=== PATIENT | female | born 1995 | race Caucasian/White ===

== ENCOUNTER 2018-05-03 21:38 | Emergency (ER) | payer OTHER, SELFPAY ==
--- NOTE | 2018-05-03 21:47 | DI.US.S_ITS ---
PROCEDURE: US OB <= 14 WEEKS FETUS INDICATIONS: BLEEDING, CRAMPING OUTSIDE/PRIOR DATING DATA: Last menstrual period (LMP): 03/17/2018. LMP-based estimated date of delivery (SHABBIR): 12/22/2018. First dating scan (date and location): This exam. Estimated date of delivery (SHABBIR) from first dating scan: n.a. TECHNIQUE: Real-time scanning was performed of the fetus and maternal pelvic organs, with image documentation. Endovaginal scanning was also performed to better visualize the fetus and maternal ovaries. COMPARISON: None. FINDINGS: Embryo: There is an IUP with an irregular shaped gestational sac. Based on the mean gestational sac dimension, the estimated gestational age is 6 weeks 0 day. No pole or yolk sac are visualized. Measurement variability in dating: +/- 4 weeks by LMP, +/- 7 days by mean sac diameter (use before 6 weeks gestation if crown-rump length not able to be measured), +/- 5 days by crown-rump length (up to 8 weeks 6 days gestation), +/- 7 days by crown-rump length (up to 13 weeks 6 days gestation). Maternal organs: Ovaries are grossly normal. Limited images through the kidneys demonstrate no hydronephrosis. IMPRESSION: There is an IUP with an irregular gestational sac and no pole or yolk sac. The estimated gestational age based on the second measures 6 weeks 0 day. The ultrasound finding is concerning for early failure but clinical correlation is needed. Followup imaging as clinically indicated. No significant discrepancy with the spot welder line radiology preliminary report. Dictated by: Ora Bueno M.D. on 05/04/2018 at 8:57 Approved by: Ora Bueno M.D. on 05/04/2018 at 9:02
[2018-05-03 22:00] VITALS: BP 150/100; PULSE 103; RESP 20; TEMP 36.3; O2SAT 98; BMI 33.0
--- NOTE | 2018-05-03 22:22 | PC.NURSE ---
Pt states 6 weeks , vaginal bleeding since yesterday worse today with new onset lower abdominal cramping for past 2 hours and worse bleeding filling a pad every 1.5 to 2 hours. States was seen at [facility] yesterday for vaginal bleeding and had an US that showed baby was good. 1 Para 0. Pt denies n/v or fevers. Last BM normal today.
[2018-05-03 22:24] LABS: Hemoglobin 14.1 g/dL (12.0-16.0)
[2018-05-03 22:51] LABS: HCG Quantitative /Beta subunit 1756.8 mIU/mL
[2018-05-03 23:05] VITALS: BP 129/89; PULSE 93; RESP 19; O2SAT 98
--- NOTE | 2018-05-03 23:07 | ED.PREGNANCY ---
HPI - General Chief complaint: OB/Uterine Contractions Stated complaint: 6wks preg, cramps Time Seen by Provider: 05/03/18 21:47 Source: patient and family Mode of arrival: ambulatory Limitations: no limitations History of Present Illness HPI Narrative: 22-year-old female nonsmoker, otherwise healthy presents with worsening pelvic cramping and vaginal bleeding for the past 1 hr. She is a at about 6 weeks and had some spotting yesterday and presented to an outside facility. There she had a very thorough evaluation including ultrasound that shows a possible gestational sac within the uterus, no obvious ectopic and beta quantitative HCG of 3663. She had a relatively normal morning and then a few hours ago developed more intense pelvic cramping and heavier bleeding with the passage of 1 clots. She is not dizzy nor weak or lightheaded. She has had no fever or chills. She denies any trauma. She has a scheduled appointment with her Ob on based on Tuesday MD Complaint: vaginal bleeding Onset (ago): hour(s) Pain Consistency: intermittent Location: pelvis Severity: moderate Quality: Aching and Cramping Relieving factors: none Exacerbating factors: none Vaginal bleeding: heavy Patient : Yes Number of Weeks : 6 Review of Systems Constitutional Denies chills, Denies fever(s), Denies lethargy and Denies weakness Eyes Denies change in vision, Denies eye discharge, Denies irritation and Denies loss of vision ENT Ears, Nose, Mouth, and Throat: Denies change in voice, Denies neck pain and Denies sore throat Cardiovascular Denies chest pain, Denies irregular heart rhythm, Denies lightheadedness, Denies palpitations, Denies dyspnea, Denies dyspnea on exertion and Denies orthopnea Respiratory Denies cough, Denies dyspnea, Denies dyspnea on exertion and Denies wheezing Gastrointestinal Gastrointestinal: Denies abdominal pain, Denies change in bowel habits, Denies diarrhea, Denies nausea and Denies vomiting Genitourinary Reports abnormal vaginal bleeding, Denies hematuria, Reports pelvic pain, Denies flank pain, Denies urinary incontinence and Denies urinary urgency Musculoskeletal Denies neck pain Integumentary/Breasts Denies pruritus, Denies erythema, Denies rash and Denies wounds Neurologic Denies confusion, Denies loss of vision and Denies weakness Psychiatric Denies anxiety, Denies confusion, Denies depression, Denies homicidal ideation and Denies suicidal ideation Endocrine Denies palpitations Hematologic/Lymphatic Denies easy bruising Allergic/Immunologic Denies wheezing PMFSH - Past Medical History Medical history: Reports no medical history Surgical history: Reports no surgical history BRAIDER SETTER history: Reports No BRAIDER SETTER History Patient : Yes Psychiatric history: Reports no psych history Family history: Reports no significant family history Exam Narrative Exam Narrative: GENERAL: This is a well-nourished, well-developed patient, in mild distress. HEAD: Atraumatic. Normocephalic. No temporal or scalp tenderness. EYES: Pupils equal round and reactive. Extraocular motions intact. No scleral icterus. No injection or drainage. ENT: Nose without bleeding, purulent drainage or septal hematoma. Throat without erythema, tonsillar hypertrophy or exudate. Uvula midline. Airway patent. NECK: Trachea midline. No JVD or lymphadenopathy. Supple, nontender, no meningeal signs. CARDIOVASCULAR: Regular rate and rhythm without murmurs, gallops, or rubs. RESPIRATORY: Clear to auscultation. Breath sounds equal bilaterally. No wheezes, rales, or rhonchi. GASTROINTESTINAL: Abdomen soft, non-tender, nondistended. No hepato-splenomegaly, or palpable masses. No guarding. PELVIC: dark blood with minimal clots via closed cervical os. 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 No joint tenderness, effusion, or edema noted. BACK: Nontender without deformity or crepitance. No flank tenderness. NEURO: AOx3. SKIN: No rash or erythema. Initial Vital Signs Initial Vital Signs: Vital Signs Temperature 97.3 F L 05/03/18 22:00 Pulse Rate 103 H 05/03/18 22:00 Respiratory Rate 20 05/03/18 22:00 Blood Pressure 150/100 H 05/03/18 22:00 Pulse Oximetry 98 05/03/18 22:00 Procedures Number of Weeks : 6 Course Orders Ordered: ED Orders 05/03/18 21:47 US OB <= 14 weeks fetus Stat 05/03/18 22:15 ABO RH Type Stat HCG Quantitative Stat Hemoglobin and Hematocrit Stat Consultations Consultation #1: Given slightly worsening symptoms, appearance on ultrasound and decreased beta quantitative HCG he was seen this is almost surely a threatened and early miscarriage. Patient has an appointment with her OB on Tuesday and can discuss various options. She and significant other had been given return precautions and verbalized their understanding Vital Signs - 8 hr 05/03/18 22:00 Temperature 97.3 F L Pulse Rate 103 H Respiratory Rate 20 Blood Pressure 150/100 H Pulse Oximetry 98 MDM - OB/Uterine Contractions Medical Records Attestation: I reviewed the patient's medical records. Lab Data Attestation: I reviewed the patient's lab results. Result diagrams: 05/03/18 22:15 Lab Results 05/03/18 05/03/18 05/03/18 Range/Units 22:15 22:15 22:15 Hgb 14.1 (12.0-16.0) g/dL Hct 41.0 (36-46) % HCG, Quant 1756.8 mIU/mL Blood Type O Positive Imaging Data US Pelvis / OB: Radiologist's impression: 1.2 cm gestational sac noted without pole or cardiac activity. This may be a nonviable Discharge Plan Departure Patient Disposition: Home Clinical Impression: Vaginal bleeding affecting early , , spontaneous threatened Discharge Date/Time: 05/03/18 23:10 Instructions: DI for Threatened Activity Restrictions/Additional Instructions: *You have been diagnosed with [ vaginal bleeding in , likely threatened miscarriage ] *What to do: *Follow up with your timber setter provider on Tuesday as planned *Return to ER if you should have any new, worsening or concerning symptoms, such as [increased bleeding, saturating a pad per hour for more than a few hours, dizziness, lightheadedness or other bothersome symptoms ]
--- NOTE | 2018-05-03 23:19 | ED_ITS ---
HPI - General Chief complaint: OB/Uterine Contractions Stated complaint: 6wks preg, cramps Time Seen by Provider: 05/03/18 21:47 Source: patient and family Mode of arrival: ambulatory Limitations: no limitations History of Present Illness HPI Narrative: 22-year-old female nonsmoker, otherwise healthy presents with worsening pelvic cramping and vaginal bleeding for the past 1 hr. She is a at about 6 weeks and had some spotting yesterday and presented to an outside facility. There she had a very thorough evaluation including ultrasound that shows a possible gestational sac within the uterus, no obvious ectopic and beta quantitative HCG of 3663. She had a relatively normal morning and then a few hours ago developed more intense pelvic cramping and heavier bleeding with the passage of 1 clots. She is not dizzy nor weak or lightheaded. She has had no fever or chills. She denies any trauma. She has a scheduled appointment with her Ob on based on Tuesday MD Complaint: vaginal bleeding Onset (ago): hour(s) Pain Consistency: intermittent Location: pelvis Severity: moderate Quality: Aching and Cramping Relieving factors: none Exacerbating factors: none Vaginal bleeding: heavy Patient : Yes Number of Weeks : 6 Review of Systems Constitutional Denies chills, Denies fever(s), Denies lethargy and Denies weakness Eyes Denies change in vision, Denies eye discharge, Denies irritation and Denies loss of vision ENT Ears, Nose, Mouth, and Throat: Denies change in voice, Denies neck pain and Denies sore throat Cardiovascular Denies chest pain, Denies irregular heart rhythm, Denies lightheadedness, Denies palpitations, Denies dyspnea, Denies dyspnea on exertion and Denies orthopnea Respiratory Denies cough, Denies dyspnea, Denies dyspnea on exertion and Denies wheezing Gastrointestinal Gastrointestinal: Denies abdominal pain, Denies change in bowel habits, Denies diarrhea, Denies nausea and Denies vomiting Genitourinary Reports abnormal vaginal bleeding, Denies hematuria, Reports pelvic pain, Denies flank pain, Denies urinary incontinence and Denies urinary urgency Musculoskeletal Denies neck pain Integumentary/Breasts Denies pruritus, Denies erythema, Denies rash and Denies wounds Neurologic Denies confusion, Denies loss of vision and Denies weakness Psychiatric Denies anxiety, Denies confusion, Denies depression, Denies homicidal ideation and Denies suicidal ideation Endocrine Denies palpitations Hematologic/Lymphatic Denies easy bruising Allergic/Immunologic Denies wheezing PMFSH - Past Medical History Medical history: Reports no medical history Surgical history: Reports no surgical history WILDERNESS GUIDE history: Reports No WILDERNESS GUIDE History Patient : Yes Psychiatric history: Reports no psych history Family history: Reports no significant family history Exam Narrative Exam Narrative: GENERAL: This is a well-nourished, well-developed patient, in mild distress. HEAD: Atraumatic. Normocephalic. No temporal or scalp tenderness. EYES: Pupils equal round and reactive. Extraocular motions intact. No scleral icterus. No injection or drainage. ENT: Nose without bleeding, purulent drainage or septal hematoma. Throat without erythema, tonsillar hypertrophy or exudate. Uvula midline. Airway patent. NECK: Trachea midline. No JVD or lymphadenopathy. Supple, nontender, no meningeal signs. CARDIOVASCULAR: Regular rate and rhythm without murmurs, gallops, or rubs. RESPIRATORY: Clear to auscultation. Breath sounds equal bilaterally. No wheezes, rales, or rhonchi. GASTROINTESTINAL: Abdomen soft, non-tender, nondistended. No hepato- splenomegaly, or palpable masses. No guarding. PELVIC: dark blood with minimal clots via closed cervical os. 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 No joint tenderness, effusion, or edema noted. BACK: Nontender without deformity or crepitance. No flank tenderness. NEURO: AOx3. SKIN: No rash or erythema. Initial Vital Signs Initial Vital Signs: Vital Signs Temperature 97.3 F L 05/03/18 22:00 Pulse Rate 103 H 05/03/18 22:00 Respiratory Rate 20 05/03/18 22:00 Blood Pressure 150/100 H 05/03/18 22:00 Pulse Oximetry 98 05/03/18 22:00 Procedures Number of Weeks : 6 Course Orders Ordered: ED Orders 05/03/18 21:47 US OB <= 14 weeks fetus Stat 05/03/18 22:15 ABO RH Type Stat HCG Quantitative Stat Hemoglobin and Hematocrit Stat Consultations Consultation #1: Given slightly worsening symptoms, appearance on ultrasound and decreased beta quantitative HCG he was seen this is almost surely a threatened and early miscarriage. Patient has an appointment with her OB on Tuesday and can discuss various options. She and significant other had been given return precautions and verbalized their understanding Vital Signs - 8 hr 05/03/18 22:00 Temperature 97.3 F L Pulse Rate 103 H Respiratory Rate 20 Blood Pressure 150/100 H Pulse Oximetry 98 MDM - OB/Uterine Contractions Medical Records Attestation: I reviewed the patient's medical records. Lab Data Attestation: I reviewed the patient's lab results. Result diagrams: 05/03/18 22:15 Lab Results 05/03/18 05/03/18 05/03/18 Range/Units 22:15 22:15 22:15 Hgb 14.1 (12.0-16.0) g/dL Hct 41.0 (36-46) % HCG, Quant 1756.8 mIU/mL Blood Type O Positive Imaging Data US Pelvis / OB: Radiologist's impression: 1.2 cm gestational sac noted without pole or cardiac activity. This may be a nonviable Discharge Plan Departure Patient Disposition: Home Clinical Impression: Vaginal bleeding affecting early , , spontaneous threatened Discharge Date/Time: 05/03/18 23:10 Instructions: DI for Threatened Activity Restrictions/Additional Instructions: *You have been diagnosed with [ vaginal bleeding in , likely threatened miscarriage ] *What to do: *Follow up with your cmo & president provider on Tuesday as planned *Return to ER if you should have any new, worsening or concerning symptoms, such as [increased bleeding, saturating a pad per hour for more than a few hours, dizziness, lightheadedness or other bothersome symptoms ]
--- NOTE | 2018-05-04 08:34 | PATH_ITS ---
[facility] Accession Number: [id number] . 01 Material submitted: . POC/VAGINAL . 01 Clinical history: . CONFIRM POC . 02 Diagnosis: Products Of Conception/Vaginal: Portions of blood and fibrin. Negative for products of conception. I/05/08/2018 . 02 Electronically signed: . Iman Mayorga MD, Pathologist NPI- [id number] . 01 Gross description: . Received unfixed, labeled products of conception, are multiple fragments of miller-pink tissue (2.3 x 2.1 x 0.4 cm in aggregate). No tissue is identified. Entirely submitted in cassette A1. ([id number]) /MRV . 02 Pathologist provided ICD-10: Z00.01 . 02 CPT . 425199 Performed at: [facility] [address] [id number] MD Felipe Montano MD Phone: [phone] Performed at: [facility] [address] [place], [place] [id number] MD Sobia Chase MD Phone: [phone]
== END 2018-05-03 23:10 | disposition home or self-care (01) ==
PROVIDERS: Emergency Provider Emergency Medicine
DX: O20.0 Threatened abortion (principal); O20.9 Hemorrhage in early pregnancy, unspecified; Z3A.01 Less than 8 weeks gestation of pregnancy
CPT/HCPCS: 36415; 76801; 76817; 84702; 85014; 85018; 86900; 86901; 99283; 99284

== ENCOUNTER 2020-01-03 08:26 | Emergency (ER) | payer OTHER, SELFPAY ==
[2020-01-03 08:33] VITALS: BP 172/91; PULSE 109; RESP 18; TEMP 37.2; O2SAT 99; BMI 32.3
[2020-01-03 08:38] VITALS: BP 164/76; PULSE 115; O2SAT 98
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
[2020-01-03 09:00] VITALS: PULSE 109; O2SAT 98
[2020-01-03 09:01] VITALS: BP 135/58; PULSE 98; O2SAT 97
[2020-01-03 09:10] LABS: Bacteria Urine None Seen; RBC Urine None Seen (0-5/HPF)
[2020-01-03 09:24] LABS: Culture Indicated Urine Cult Not Indicated; Squamous Epithelial Cell Urine 5-10 /HPF (0-5/HPF); WBC Urine 5-10/HPF (0-5/HPF)
[2020-01-03 09:38] VITALS: BP 110/59; PULSE 88; RESP 18; O2SAT 99
== END 2020-01-03 09:39 | disposition home or self-care (01) ==
PROVIDERS: Emergency Provider Emergency Medicine
DX: O26.892 Other specified pregnancy related conditions, second trimester (principal); R10.30 Lower abdominal pain, unspecified; Z3A.14 14 weeks gestation of pregnancy
CPT/HCPCS: 76815; 81003; 81015; 99282; 99283

== ENCOUNTER → 2021-04-27 12:16 | Outpatient (CLI) | payer OTHER, SELFPAY ==
--- NOTE | 2021-04-27 12:17 | DI.US.S_ITS ---
PROCEDURE: US OB <= 14 WEEKS FETUS INDICATIONS: viability and dates OUTSIDE/PRIOR DATING DATA: Last menstrual period (LMP): 03/01/2021. LMP-based estimated date of delivery (SHABBIR): 12/06/2021. First dating scan (date and location): 04/27/2021. Estimated date of delivery (SHABBIR) from first dating scan: 12/07/2021. TECHNIQUE: Real-time scanning was performed of the fetus and maternal pelvic organs, with image documentation. Endovaginal scanning was also performed to better visualize the fetus and maternal ovaries. COMPARISON: [facility], , OB <= 14 WEEKS FETUS, 05/03/2018, 21:53. FINDINGS: Embryo: Intrauterine crown-rump length measures 1.6 cm corresponding with a 8 week 0 day gestation. No subchorionic/implantation bleed present. Heart rate: 168 beats per minute Maternal organs: Ovaries show simple right ovarian cyst measuring 2.3 x 2.6 cm. Both ovaries have appropriate echotexture and vascularity. No adnexal mass.. IMPRESSION: Single live intrauterine corresponds with a 8 week 0 day gestation. Approved by: Delano Razo M.D. on 04/27/2021 at 13:53
== END ==
PROVIDERS: PCP Nurse Practitioner Family; Referring Provider Obstetrics & Gynecology; Visit Provider Obstetrics & Gynecology
DX: Z36.87 Encounter for antenatal screening for uncertain dates (principal); Z3A.08 8 weeks gestation of pregnancy
CPT/HCPCS: 76801; 76817

== ENCOUNTER → 2021-06-10 16:34 | Outpatient (CLI) | payer OTHER, SELFPAY ==
[2021-06-10 17:18] LABS: Add Manual Diff / Slide Review NO; Basophils Absolute Auto 0 /uL (0-100); Basophils Percent Auto 0.3 % (0-2); Eosinophils Absolute Auto 200 /uL (0-450); Eosinophils Percent Auto 2.5 % (2-4); Hematocrit 35.3 % (36-46); Hemoglobin 12.5 g/dL (12.0-16.0); Lymphocytes Absolute Auto 1800 /uL (1100-4500); Lymphocytes Percent Auto 24.8 % (25-40); Mean Corpuscular HGB Conc 35.4 % (30-36); Mean Corpuscular Hemoglobin 30.3 PG (26-34); Mean Corpuscular Volume 85.6 fL (80-100); Monocytes Absolute Auto 600 /uL (0-900); Monocytes Percent Auto 8.3 % (3-14); Neutrophils Absolute Auto 4700 /uL (1500-7000); Neutrophils Percent Auto 64.1 % (50-75); Platelet Count 201 X10^3/uL (150-400); Red Blood Cell Count 4.12 X10^6/uL (4.0-5.2); Red Cell Distribution Width 14.4 % (11.6-14.8); White Blood Cell Count 7.4 X10^3/uL (4.5-11.0)
[2021-06-10 17:24] LABS: Alanine Aminotransferase 10 IU/L (<35); Albumin 4.1 g/dL (3.5-5.0); Albumin Globulin Ratio 1.3 (1.0-2.8); Alkaline Phosphatase 51 U/L (38-126); Aspartate Aminotransferase 16 IU/L (14-36); BUN Creatinine Ratio 10.7 (6-22); Bilirubin Total 0.4 mg/dL (0.2-1.3); Blood Urea Nitrogen 6 mg/dL (7-17); Calcium 8.9 mg/dL (8.4-10.2); Carbon Dioxide 23 mmol/L (22-32); Chloride 106 mmol/L (98-107); Estimated Glomerular Filt Rate > 60.0 mL/min (>60); Globulin 3.1 g/dL (1.7-4.1); Glucose 82 mg/dL (70-100); HEMOLYSIS < 15 (0-50); Potassium 3.8 mmol/L (3.4-5.1); Sodium 137 mmol/L (137-145); Total Protein 7.2 g/dL (6.3-8.2)
[2021-06-11 07:19] LABS: RPR Screen Non Reactive (Non Reactive)
[2021-06-11 10:04] LABS: Varicella IgG Antibody <135 index (Immune >165)
[2021-06-11 17:26] LABS: Hepatitis B Surface Antigen NEGATIVE s/c (NEGATIVE); Rubella Antibody IgG 20.7 IU/mL (>15)
[2021-06-11 17:45] LABS: HIV 1 & 2 Ab/Ag 4th Gen Combo NEGATIVE (NEGATIVE); Hep C Virus Ab w/Reflex Quant REACTIVE s/c (NEGATIVE)
== END ==
PROVIDERS: PCP Nurse Practitioner Family; Referring Provider Obstetrics & Gynecology; Visit Provider Obstetrics & Gynecology
DX: Z34.80 Encounter for supervision of other normal pregnancy, unspecified trimester (principal); Z87.59 Personal history of other complications of pregnancy, childbirth and the puerperium
CPT/HCPCS: 36415; 80053; 80055; 86787; 86803; 86850; 86900; 86901; 87086; 87389; 87522

== ENCOUNTER → 2021-07-08 16:38 | Outpatient (CLI) | payer OTHER, SELFPAY ==
[2021-07-11 18:36] LABS: Calc Gestational Age Ultrasound (.); Inhibin A, Dimeric 158.65 pg/mL (.); Inhibin A, MoM 1.36 (.); Maternal Ethnicity Caucasian (.); Maternal Weight 250 lbs (.); Number of Fetuses No (.); OSBR Risk 1 IN 10000 (.); Results Report (.); Test Results *Screen Negative* (.); hCG, MoM 1.09 (.); hCG, Serum 22486 mIU/mL (.)
== END ==
PROVIDERS: PCP Nurse Practitioner Family; Referring Provider Obstetrics & Gynecology; Visit Provider Obstetrics & Gynecology
DX: Z34.82 Encounter for supervision of other normal pregnancy, second trimester (principal); Z3A.18 18 weeks gestation of pregnancy
CPT/HCPCS: 36415; 82105; 82677; 84702; 86336